=== PATIENT | male | born 1945 | race Caucasian/White ===

== ENCOUNTER 2016-08-12 15:23 | Emergency (ER) | payer MEDICARE ==
[~2016-08-12] VITALS: Ht 172.7 cm; Wt 70.3 kg
[2016-08-12 15:25] VITALS: BP_SYST 203
[2016-08-12 16:00] LABS: BASOPHILS % (AUTO) 0.4 % (0.0-2.0); EOSINOPHILS # (AUTO) 0.1 K/uL (0.0-0.4); EOSINOPHILS % (AUTO) 1.3 % (0.0-4.0); LYMPHOCYTES # (AUTO) 1.4 K/uL (1.0-5.5); LYMPHOCYTES % (AUTO) 13.4 % (20.5-51.5); MEAN CORPUSCULAR HEMOGLOBIN 28 pg (27-31); MEAN CORPUSCULAR HGB CONC 32 % (32-36); MEAN CORPUSCULAR VOLUME 87 fL (79.0-98.0); MONOCYTES # (AUTO) 0.8 K/uL (0.0-1.0); MONOCYTES % (AUTO) 7.8 % (1.7-9.3); NEUTROPHILS # (AUTO) 8.5 K/uL (1.8-7.7); NEUTROPHILS % (AUTO) 77.1 % (40.0-70.0); PLATELET COUNT (AUTO) 259 K/uL (130-430); RED BLOOD CELL COUNT(AUTO) 5.41 MIL/uL (4.2-6.2); RED CELL DISTRIBUTION WIDTH 14.2 % (9.0-15.0); WHITE BLOOD COUNT (AUTO) 10.8 K/uL (4.8-10.8)
[2016-08-12 16:02] LABS: CALCIUM 9.3 mg/dL (8.4-11.0); CREATININE 1.35 mg/dL (0.55-1.30); INR 0.9 (0.80-1.20); POTASSIUM 3.7 mmol/L (3.5-5.1); PROTHROMBIN TIME 10.3 SECS (9.5-12.5)
[2016-08-12 16:07] LABS: TOTAL BILIRUBIN 0.4 mg/dL (0.0-1.0); TOTAL PROTEIN, SERUM 7.8 g/dL (6.4-8.3)
[2016-08-12] MEDS ORDERED: cloNIDine HCL 0.1 MG TABLET PO ONE ×2 (16:15→17:00)
[2016-08-12] MEDS ORDERED: ROSU10TA PO (16:24)
[2016-08-12] MEDS ORDERED: DOXY-4 PO (16:24)
[2016-08-12] MEDS ORDERED: TOPXL100 PO (16:24)
[2016-08-12] MEDS ORDERED: CLOP75TA2 PO (16:24)
[2016-08-12] MEDS ORDERED: LISI-219 PO (16:24)
[2016-08-12] MEDS ORDERED: ASPI81TA2 PO (16:24)
[2016-08-12] MEDS ORDERED: AMAN100C16 PO (16:24)
[2016-08-12] MEDS ORDERED: SUCR1TAB78 PO (16:24)
[2016-08-12] MEDS ORDERED: cloNIDine HCL 0.1 MG TABLET ONE (16:55)
[2016-08-12 18:26] VITALS: BP_SYST 174
== END 2016-08-12 18:26 | disposition short-term general hospital (02) ==
LOC: SED 15:23
DX: R53.1 Weakness (principal); R42 Dizziness and giddiness; Z88.6 Allergy status to analgesic agent; Z88.5 Allergy status to narcotic agent; Z85.528 Personal history of other malignant neoplasm of kidney; Z79.899 Other long term (current) drug therapy
CPT/HCPCS: 36415; 70450-TC; 71010; 80053; 82550-TC; 83880; 84484; 85025; 85610-TC; 85730-TC; 93005; 99285

== ENCOUNTER 2020-11-22 01:22 | Emergency (ER) | payer MEDICARE ==
[~2020-11-22] VITALS: Ht 172.7 cm; Wt 117.9 kg
[~2020-11-22 01:22] MED LIST: AMAN100C16 PO; ASPI-1155 PO; CLOP75TA2 PO; DOXY100C PO; LISI-219 PO; ROSU10TA2 PO; SUCR1TAB78 PO; TOPXL100 PO
[2020-11-22 01:25] VITALS: BP_SYST 163
[2020-11-22] MEDS: HYDROcodone/ACETAMIN 10-325 MG TAB PO ONE (01:59)
[2020-11-22 02:28] LABS: BASOPHILS # (AUTO) 0.1 K/uL (0.0-0.2); BASOPHILS % (AUTO) 0.6 % (0.0-2.0); HEMOGLOBIN 12.4 g/dL (14.0-18.0); LYMPHOCYTES # (AUTO) 0.3 K/uL (1.0-5.5); LYMPHOCYTES % (AUTO) 1.5 % (20.5-51.5); MEAN CORPUSCULAR HEMOGLOBIN 29 pg (27-31); MEAN CORPUSCULAR HGB CONC 33 % (32-36); MEAN CORPUSCULAR VOLUME 90 fL (79.0-98.0); MONOCYTES # (AUTO) 1.3 K/uL (0.0-1.0); MONOCYTES % (AUTO) 6.9 % (1.7-9.3); NEUTROPHILS # (AUTO) 17.5 K/uL (1.8-7.7); PLATELET COUNT (AUTO) 186 K/uL (130-430); RED BLOOD CELL COUNT(AUTO) 4.25 MIL/uL (4.2-6.2); RED CELL DISTRIBUTION WIDTH 15.5 % (9.0-15.0); WHITE BLOOD COUNT (AUTO) 19.3 K/uL (4.8-10.8)
[2020-11-22 02:38] LABS: ANION GAP 9 (5-15); CALCIUM 8.8 mg/dL (8.4-11.0); CHLORIDE 95 mmol/L (98-107); CREATININE 1.38 mg/dL (0.55-1.30); GLUCOSE 142 mg/dL (70-99); POTASSIUM 3.8 mmol/L (3.5-5.1); SODIUM SERUM 130 mmol/L (136-145); UREA NITROGEN, BLOOD 31 mg/dL (8-21)
[2020-11-22 02:43] LABS: ALANINE AMINOTRANSFERASE 37 U/L (12-78); ALBUMIN 2.3 g/dL (3.4-4.8); ASPARTATE AMINOTRANSFERASE 21 U/L (10-37); TOTAL BILIRUBIN 0.7 mg/dL (0.0-1.0)
[2020-11-22] MEDS ORDERED: NACL 0.9% 1,000 ML IV ONE (03:15)
[2020-11-22] MEDS ORDERED: VANCOMYCIN HCL 1000 MG/VIAL IV ONE (03:18)
[2020-11-22] MEDS ORDERED: LISI-209 PO (03:59)
[2020-11-22] MEDS ORDERED: DABI150C PO (03:59)
[2020-11-22] MEDS ORDERED: HYDR100T25 PO (03:59)
[2020-11-22] MEDS ORDERED: AMIO200T5 PO (03:59)
[2020-11-22] MEDS ORDERED: HYT1 PO (03:59)
[2020-11-22] MEDS ORDERED: ROSU10TA29 PO (03:59)
[2020-11-22] MEDS ORDERED: [UNRECOGNIZED DRUG - OTHER] PO (04:03)
[2020-11-22] MEDS: cefTRIAXone 1 GM IVPB PREMIX 50 ML IV ONE (04:30)
[2020-11-22] MEDS: NACL 0.9% 2,000 ML IV ONE (04:31)
[2020-11-22] MEDS: VANCOMYCIN HCL 1,000 MG in NS 250 ML IV ONE (04:31)
[2020-11-22] MEDS: NACL 0.9% 1,000 ML IV ONE (04:31)
[2020-11-22 06:34] VITALS: BP_SYST 131
== END 2020-11-22 06:34 | disposition home or self-care (01) ==
LOC: SED 01:22
DX: A41.9 Sepsis, unspecified organism (principal); L03.116 Cellulitis of left lower limb; Z88.5 Allergy status to narcotic agent; Z88.6 Allergy status to analgesic agent; Z79.899 Other long term (current) drug therapy; Z20.822 Contact with and (suspected) exposure to COVID-19
CPT/HCPCS: 36415; 80053; 83605; 85025; 87040; 87426; 93971; 96365; 96366; 96367; 99284; J0696; J3370; J7030